=== PATIENT | female | born 1980 | race Caucasian/White ===

== ENCOUNTER 2016-10-29 20:48 | Inpatient (IN) | payer MEDICAID, OTHER ==
[~2016-10-29] VITALS: Ht 162.6 cm; Wt 91.0 kg
[~2016-10-29 20:48] MED LIST: ADDE20TA OR; LABETALOL 200 MG PO; METHY10 PO; OXYC-360 PO; PRENTAB62 PO; XYRE500S PO
[2016-10-29 20:49] VITALS: BP 160/88; PULSE 126; RESP 18; TEMP 97.6; O2SAT 100
--- NOTE | 2016-10-29 20:58 | PD ---
Physical Exam Date Seen by Provider: October 29, 2016 Time Seen by Provider: 20:56 Narrative 36 yo female that presents to the ED for evaluation of abnormal labs and here to get blood transfusion. She was seen at [facility] and left AMA for "various reasons". States she has chest pain and leg swelling. Called her doctor who told her to come here for the abnormal blood work. Vitals sign stable. Patient awaiting bed placement. Data Data Last Documented VS Vital Signs Date Time Temp Pulse Resp B/P Pulse Ox O2 Delivery O2 Flow Rate FiO2 10/29/16 20:49 97.6 126 18 160/88 100 Room Air [facility] Medical Record Reviewed: Yes Supervised Visit with PABLO: No Andre Buck October 29, 2016 20:58
[2016-10-29 22:44] LABS: MEAN CORPUSCULAR HGB CONC 27.2 % (32.0-36.0)
--- NOTE | 2016-10-29 22:47 | PD ---
Physical Exam Date Seen by Provider: October 29, 2016 Time Seen by Provider: 22:43 Narrative 36-year-old female with history of narcolepsy, recurrent microcytic anemia status post gastric bypass, presents the emergency department at the request of her primary care physician. Patient states she was at [facility] 3 days ago, and was going to be admitted for anemia, and transfusion, but the patient left AMA. Patient called her primary care physician today who reviewed her labs and stated she needed to come and be seen for possible renal failure and anemia. Patient has a history of anemia and renal failure in the past. Patient is complaining of some left flank pain, but denies fever, nausea, vomiting, or diarrhea. She is allergic to adhesive tape. Data Data Last Documented VS Vital Signs Date Time Temp Pulse Resp B/P Pulse Ox O2 Delivery O2 Flow Rate FiO2 10/29/16 20:59 16 10/29/16 20:49 97.6 126 160/88 100 Room Air Orders Complete Blood Count With Diff (10/29/16 22:40) Comprehensive Metabolic Panel (10/29/16 22:40) Lipase (10/29/16 22:40) Prothrombin Time / Inr (Pt) (10/29/16 22:40) Act Partial Throm Time (Ptt) (10/29/16 22:40) Urinalysis - C+S If Indicated (10/29/16 22:40) Iv Access Insert/Monitor (10/29/16 22:40) Ecg Monitoring (10/29/16 22:40) Oximetry (10/29/16 22:40) Type And Screen (10/29/16 22:40) [facility] Medical Record Reviewed: Yes Supervised Visit with PABLO: Yes Narrative Course Patient will be seen by Dr. Jo who will do the full exam and disposition. Condition: Stable Carter Macias October 29, 2016 22:47
[2016-10-29 23:14] LABS: AUTOMATED NEUTROPHIL # 6.4 TH/MM3 (1.8-7.7); BASOPHIL # 0.2 TH/MM3 (0-0.2); BASOPHIL % 1.4 % (0.0-2.0); EOSINOPHIL # 0.3 TH/MM3 (0-0.4); EOSINOPHIL % 2.6 % (0.0-4.0); HEMATOCRIT 25.9 % (35.0-46.0); HEMO FLAGS DIFF FINAL; LYMPHOCYTE # 3.1 TH/MM3 (1.0-4.8); MEAN CELL VOLUME 63.1 FL (80.0-100.0); MEAN CORPUSCULAR HEMOGLOBIN 17.2 PG (27.0-34.0); MONO % 6.8 % (0.0-8.0); NEUT % 60.2 % (16.0-70.0); PLATELET COUNT 269 TH/MM3 (150-450); RED BLOOD COUNT 4.11 MIL/MM3 (4.00-5.30); RED CELL DISTRIBUTION WIDTH 19.9 % (11.6-17.2); WHITE BLOOD COUNT 10.6 TH/MM3 (4.0-11.0)
[2016-10-29 23:19] VITALS: RESP 16
[2016-10-29] MEDS ORDERED: METHY10 PO (23:28)
[2016-10-29] MEDS ORDERED: ADDE20 PO (23:28)
[2016-10-29 23:33] LABS: ANION GAP 7 MEQ/L (5-15); AST (GOT) 10 U/L (15-37); BICARBONATE 25.3 MEQ/L (21.0-32.0); BLOOD UREA NITROGEN 8 MG/DL (7-18); CHLORIDE 105 MEQ/L (98-107); GLOMERULAR FILTRATION RATE 172 ML/MIN (>89); POTASSIUM 3.8 MEQ/L (3.5-5.1); SODIUM (NA) 137 MEQ/L (136-145)
[2016-10-29 23:34] LABS: ALT (GPT) 17 U/L (10-53)
[2016-10-29 23:36] LABS: ALKALINE PHOSPHATASE 95 U/L (45-117); APTT (PATIENT) 26.6 SEC (24.3-30.1); INTERNATIONAL NORMALIZED RATIO 0.9 RATIO; PROTHROMBIN TIME - PATIENT 10.3 SEC (9.8-11.6); TOTAL BILIRUBIN ADULT 0.2 MG/DL (0.2-1.0)
--- NOTE | 2016-10-29 23:38 | PD ---
HPI Chief Complaint: Abdominal Pain Time Seen by Provider: 23:25 Travel History International Travel<30 days: No Contact w/Intl Traveler<30days: No Traveled to known affect area: No History of Present Illness HPI The patient is a 36-year-old female who presents emergency department for multiple complaints. The patient states she was evaluated in the emergency department [facility] last week. The patient was diagnosed with anemia and apparently had acute renal failure, however, she left the emergency department against medical review coordinator. The patient received a phone call from her tremor physician, Dr. Edwards, earlier today and was told to come to the emergency department for abnormal labs. The patient does have a history of gastric bypass with [id number], has a history of anemia which she thinks is worse over the last several weeks. The patient does complain of dyspnea upon exertion and fatigue. She also complains of edema to lower extremities bilateral, is unsure if this is secondary to her renal failure. The patient also notes a history of HPV with abnormal Pap smears, states her labs Pap smear was 4 years ago, is unsure if she is having any symptoms related to her vaginal discharge which she describes as brown, liquid, with pelvic pain. The patient denies any fever, chills, or sweats. The patient denies any current rectal bleeding or dark colored stools. PFSH Past Medical History Autoimmune Disease: No Anxiety: No Depression: No Cancer: No Cardiovascular Problems: Yes Diabetes: No (GEST DIAB) Diminished Hearing: No Genitourinary: No Hypertension: Yes Musculoskeletal: No Neurologic: No Reproductive: No Respiratory: Yes (NARCOLEPSY) Tetanus Vaccination: Never Vaccinated Influenza Vaccination: No ?: Not LMP: 10/19/16 : 4 Para: 2 Miscarriage: 0 : 1 Past Surgical History Surgical History: No Previous Surgery Pacemaker: No Social History Alcohol Use: No Tobacco Use: Yes Substance Use: No Allergies-Medications (Allergen,Severity, Reaction): Uncoded Allergies: ADHESIVE TAPE (Allergy, Mild, ITCHING/RASH, 12/10/12) CLEAR TAPE Reported Meds & Prescriptions Reported Meds & Active Scripts Active Reported Ritalin IR (Methylphenidate HCl) 10 Mg Tab 10 Mg PO TIDAC Adderall (Amphetamine-Dextroamphetamine) 20 Mg Tab 20 Mg PO BID Avoid late evening doses. Space doses at least 4 to 6 hours if more than once/day dosing. Review of Systems Except as stated in HPI: all other systems reviewed are Neg General / Constitutional: No: Fever HENT: No: Lightheadedness Cardiovascular: Positive: Dyspnea on exertion, No: Chest Pain or Discomfort Respiratory: No: Shortness of Breath Gastrointestinal: No: Nausea, Vomiting Genitourinary: Positive: Pelvic Pain, Discharge Musculoskeletal: Positive: Weakness, Edema Neurologic: Positive: Weakness Physical Exam Narrative GENERAL: Awake, alert, 36-year-old female who appears her stated age is in no acute respiratory distress. SKIN: Focused skin assessment warm/dry. HEAD: Atraumatic. Normocephalic. EYES: Pupils equal and round. Mild pallor noted. ENT: No nasal bleeding or discharge. Mucous membranes pink and moist. NECK: Trachea midline. No JVD. CARDIOVASCULAR: Regular, tachycardic with a heart rate in the 120s. RESPIRATORY: No accessory muscle use. Clear to auscultation. Breath sounds equal bilaterally. GASTROINTESTINAL: Abdomen soft, obese, no rebound tenderness. Pelvic: The exam was performed in the presence of a female nurse. External examination is unremarkable. Speculum examination reveals scant white discharge in vaginal vault. No obvious abnormalities of the cervix on visual inspection. MUSCULOSKELETAL: No obvious deformities. No clubbing. No cyanosis. Bilateral lower extremity pitting edema of the feet. NEUROLOGICAL: Awake and alert. No obvious cranial nerve deficits. Motor grossly within normal limits. Normal speech. PSYCHIATRIC: Appropriate mood and affect; insight and judgment normal. Data Data Last Documented VS Vital Signs Date Time Temp Pulse Resp B/P Pulse Ox O2 Delivery O2 Flow Rate FiO2 10/29/16 23:19 16 10/29/16 20:49 97.6 126 160/88 100 Room Air Orders Complete Blood Count With Diff (10/29/16 22:40) Comprehensive Metabolic Panel (10/29/16 22:40) Lipase (10/29/16 22:40) Prothrombin Time / Inr (Pt) (10/29/16 22:40) Act Partial Throm Time (Ptt) (10/29/16 22:40) Urinalysis - C+S If Indicated (10/29/16 22:40) Iv Access Insert/Monitor (10/29/16 22:40) Ecg Monitoring (10/29/16 22:40) Oximetry (10/29/16 22:40) Type And Screen (10/29/16 22:40) Gc And Chlamydia Pcr (10/29/16 23:29) Wet Prep Profile (10/29/16 23:29) Ed Urine Pregnancytest Poc (10/29/16 23:29) Blood Product Administration .UPON TRANSFUSION (10/29/16 23:31) Sodium Chlor 0.9% 250 Ml Inj (Ns 250 Ml (10/29/16 23:45) Iron/Tibc Profile (10/29/16 23:32) Red Blood Cells (Rbc) (10/29/16 23:07) Urine Culture (10/29/16 23:20) Admit Order (Ed Use Only) (10/30/16 00:26) Labs Laboratory Tests Test 10/29/16 10/29/16 10/29/16 23:03 23:07 23:20 White Blood Count 10.6 TH/MM3 Red Blood Count 4.11 MIL/MM3 Hemoglobin 7.0 GM/DL Hematocrit 25.9 % Mean Corpuscular Volume 63.1 FL Mean Corpuscular Hemoglobin 17.2 PG Mean Corpuscular Hemoglobin 27.2 % Concent Red Cell Distribution Width 19.9 % Platelet Count 269 TH/MM3 Mean Platelet Volume 8.3 FL Neutrophils (%) (Auto) 60.2 % Lymphocytes (%) (Auto) 29.0 % Monocytes (%) (Auto) 6.8 % Eosinophils (%) (Auto) 2.6 % Basophils (%) (Auto) 1.4 % Neutrophils # (Auto) 6.4 TH/MM3 Lymphocytes # (Auto) 3.1 TH/MM3 Monocytes # (Auto) 0.7 TH/MM3 Eosinophils # (Auto) 0.3 TH/MM3 Basophils # (Auto) 0.2 TH/MM3 CBC Comment DIFF FINAL Differential Comment Prothrombin Time 10.3 SEC Prothromb Time International 0.9 RATIO Ratio Activated Partial 26.6 SEC Thromboplast Time Sodium Level 137 MEQ/L Potassium Level 3.8 MEQ/L Chloride Level 105 MEQ/L Carbon Dioxide Level 25.3 MEQ/L Anion Gap 7 MEQ/L Blood Urea Nitrogen 8 MG/DL Creatinine 0.42 MG/DL Estimat Glomerular Filtration 172 ML/MIN Rate Random Glucose 103 MG/DL Calcium Level 8.5 MG/DL Total Bilirubin 0.2 MG/DL Aspartate Amino Transf 10 U/L (AST/SGOT) Alanine Aminotransferase 17 U/L (ALT/SGPT) Alkaline Phosphatase 95 U/L Total Protein 7.5 GM/DL Albumin 3.5 GM/DL Lipase 95 U/L Iron Level 17 MCG/DL Total Iron Binding Capacity 487 MCG/DL Percent Iron Saturation 3.5 % Blood Type O NEGATIVE Antibody Screen NEGATIVE Crossmatch Leukocyte-Reduced Red Blood Cells Blood Bank Comment Urine Color YELLOW Urine Turbidity HAZY Urine pH 6.0 Urine Specific Martin 1.024 Urine Protein TRACE mg/dL Urine Glucose (UA) NEG mg/dL Urine Ketones NEG mg/dL Urine Occult Blood NEG Urine Nitrite POS Urine Bilirubin NEG Urine Urobilinogen LESS THAN 2.0 MG/DL Urine Leukocyte Esterase SMALL Urine RBC 2 /hpf Urine WBC 9 /hpf Urine Squamous Epithelial 4 /hpf Cells Urine Renal Epithelial Cells <1 /hpf Urine Bacteria RARE /hpf Urine Mucus FEW /lpf Microscopic Urinalysis Comment CULTURE INDICATED MDM Medical Decision Making Medical Screen Exam Complete: Yes Emergency Medical Condition: Yes Medical Record Reviewed: Yes Interpretation(s) Laboratory Tests Test 10/29/16 10/29/16 10/29/16 23:03 23:07 23:20 White Blood Count 10.6 TH/MM3 Red Blood Count 4.11 MIL/MM3 Hemoglobin 7.0 GM/DL Hematocrit 25.9 % Mean Corpuscular Volume 63.1 FL Mean Corpuscular Hemoglobin 17.2 PG Mean Corpuscular Hemoglobin 27.2 % Concent Red Cell Distribution Width 19.9 % Platelet Count 269 TH/MM3 Mean Platelet Volume 8.3 FL Neutrophils (%) (Auto) 60.2 % Lymphocytes (%) (Auto) 29.0 % Monocytes (%) (Auto) 6.8 % Eosinophils (%) (Auto) 2.6 % Basophils (%) (Auto) 1.4 % Neutrophils # (Auto) 6.4 TH/MM3 Lymphocytes # (Auto) 3.1 TH/MM3 Monocytes # (Auto) 0.7 TH/MM3 Eosinophils # (Auto) 0.3 TH/MM3 Basophils # (Auto) 0.2 TH/MM3 CBC Comment DIFF FINAL Differential Comment Prothrombin Time 10.3 SEC Prothromb Time International 0.9 RATIO Ratio Activated Partial 26.6 SEC Thromboplast Time Sodium Level 137 MEQ/L Potassium Level 3.8 MEQ/L Chloride Level 105 MEQ/L Carbon Dioxide Level 25.3 MEQ/L Anion Gap 7 MEQ/L Blood Urea Nitrogen 8 MG/DL Creatinine 0.42 MG/DL Estimat Glomerular Filtration 172 ML/MIN Rate Random Glucose 103 MG/DL Calcium Level 8.5 MG/DL Total Bilirubin 0.2 MG/DL Aspartate Amino Transf 10 U/L (AST/SGOT) Alanine Aminotransferase 17 U/L (ALT/SGPT) Alkaline Phosphatase 95 U/L Total Protein 7.5 GM/DL Albumin 3.5 GM/DL Lipase 95 U/L Blood Type O NEGATIVE Antibody Screen NEGATIVE Crossmatch Leukocyte-Reduced Red Blood Cells Blood Bank Comment Urine Color YELLOW Urine Turbidity HAZY Urine pH 6.0 Urine Specific Martin 1.024 Urine Protein TRACE mg/dL Urine Glucose (UA) NEG mg/dL Urine Ketones NEG mg/dL Urine Occult Blood NEG Urine Nitrite POS Urine Bilirubin NEG Urine Urobilinogen LESS THAN 2.0 MG/DL Urine Leukocyte Esterase SMALL Urine RBC 2 /hpf Urine WBC 9 /hpf Urine Squamous Epithelial 4 /hpf Cells Urine Renal Epithelial Cells <1 /hpf Urine Bacteria RARE /hpf Urine Mucus FEW /lpf Microscopic Urinalysis Comment CULTURE INDICATED Differential Diagnosis Differential diagnosis includes symptomatic anemia, GI bleed, iron deficiency anemia, hypoalbuminemia, acute renal failure, cervicitis, PID, vaginitis, UTI. Narrative Course IV was established, labs are drawn and sent, and the patient was placed on cardiac telemetry monitoring and continuous pulse oximetry monitoring. The patient's hemoglobin was noted to be 7.0, therefore, type and screen was sent to lab and the patient was ordered 2 units of PRBCs secondary to symptomatic anemia with her dyspnea upon exertion and tachycardia. A pelvic exam was performed in the presence of a female nurse. The patient's hemoglobin was 7.0, the patient is symptomatic, therefore, the patient will be transfused 2 units of PRBCs. I am profile was sent to lab. UA reveals 9 WBCs and nitrites, therefore, patient was administered Rocephin 1 g intravenously. The patient's primary physician is Dr. Edwards, [facility] Physician Communication Physician Communication The patient's primary physician is Dr. Edwards, [facility] I discussed the patient with Codey Mclean PA-C, who agrees with admission to Dr. Cruz. Diagnosis Primary Impression: Symptomatic anemia Additional Impression: UTI (urinary tract infection) Qualified Code: N30.00 - Acute cystitis without hematuria Admitting Information Admitting Physician Requests: Admit Condition: Stable Nico Jo MD October 29, 2016 23:38
[2016-10-29] MEDS ORDERED: SODIUM CHLOR 0.9% 250 ML INJ 250 ML IV ONE (23:45)
[2016-10-29 23:56] LABS: BACTERIA, URINE RARE /hpf; BLOOD, URINE NEG (NEG); GLUCOSE,URINE NEG (NEG); KETONE, URINE NEG (NEG); MUCUS URINE FEW /lpf (OCC); RENAL EPITHELIAL CELLS <1 /hpf; SQUAMOUS EPITHELIAL CELL URINE 4 /hpf (0-5); URINE COLOR YELLOW (YELLW/STRAW)
[2016-10-29 23:57] LABS: COMMENT (UR) CULTURE INDICATED; CULTURE IF INDICATED CULTURE INDICATED; NITRITE,URINE POS (NEG)
[2016-10-30 00:24] LABS: TRANSFERRIN IRON PROFILE 348 MG/DL (200-360)
[2016-10-30 00:30] VITALS: BP 122/73; PULSE 90; RESP 16; TEMP 98.5; O2SAT 99
[2016-10-30] MEDS ORDERED: NALOXONE HCL 0.4 MG/ML AMP IV PRN (00:30)
[2016-10-30] MEDS ORDERED: BISACODYL 10 MG SUPP RECTAL PRN (00:30)
[2016-10-30] MEDS ORDERED: LACTULOSE SYRUP 20 GM/30 ML CUP PO PRN (00:30)
[2016-10-30] MEDS ORDERED: SODIUM CHLORIDE 0.9% FLUSH 10 ML FLUSH IV FLUSH PRN (00:30)
[2016-10-30] MEDS ORDERED: SENNOSIDES 8.6 MG TAB PO PRN (00:30)
[2016-10-30] MEDS ORDERED: MAGNESIUM HYDROXIDE SUSP 30 ML CUP PO PRN (00:30)
[2016-10-30] MEDS ORDERED: ONDANSETRON HCL 4 MG/2 ML VIAL IVP PRN (00:30)
[2016-10-30] MEDS ORDERED: ACETAMINOPHEN 325 MG TAB PO PRN (00:30)
[2016-10-30 00:35] VITALS: BP 126/65; PULSE 91; RESP 16; O2SAT 99
[2016-10-30 00:50] VITALS: BP 124/67; PULSE 91; RESP 16; O2SAT 98
[2016-10-30 01:05] VITALS: BP 101/55; PULSE 88; RESP 16; O2SAT 99
[2016-10-30 02:06] LABS: CHLAMYDIA PCR NOT DETECTED (NOT DETECT); NEISSERIA PCR NOT DETECTED (NOT DETECT)
[2016-10-30 03:30] VITALS: BP 117/72; PULSE 82; RESP 20; TEMP 97; O2SAT 95
[2016-10-30] MEDS ORDERED: TEMAZEPAM 15 MG CAP PO SCH (03:30)
[2016-10-30] MEDS ORDERED: IBUPROFEN 800 MG TAB PO SCH (03:30)
[2016-10-30] MEDS ORDERED: cefTRIAXone 1,000 MG/NS 100 ML IV SCH ×2 (04:00)
[2016-10-30 04:40] LABS: BETA HCG QUANT LESS THAN 1 MIU/ML (0-5)
[2016-10-30] MEDS ORDERED: HEPARIN SODIUM - SQ 10,000 UNITS/ML VIAL SQ SCH (06:00)
[2016-10-30] MEDS ORDERED: FERROUS SULFATE 325 MG (65 MG ELEMENTAL IRON) TAB PO SCH (09:00)
[2016-10-30] MEDS ORDERED: SODIUM CHLORIDE 0.9% FLUSH 10 ML FLUSH IV FLUSH SCH (09:00)
[2016-10-30] MEDS ORDERED: FAMOTIDINE 20 MG TAB PO SCH (09:00)
== END 2016-10-30 06:46 | disposition left against medical advice (07) | DRG 812 ==
LOC: NEPC 20:48 → NEDA 10-30 00:27 → HOCA 10-30 02:36
PROVIDERS: ADMIT Internal Medicine; ATTEND Internal Medicine
PROC: 30233N1 Transfusion of Nonautologous Red Blood Cells into Peripheral Vein, Percutaneous Approach (ICD-10-PCS; principal; 2016-10-30)
DX: D50.9 Iron deficiency anemia, unspecified (principal); I10 Essential (primary) hypertension; G47.419 Narcolepsy without cataplexy; F17.210 Nicotine dependence, cigarettes, uncomplicated; Z98.84 Bariatric surgery status
CPT/HCPCS: 36430; 80053; 81001; 83540; 83550; 83690; 84702; 84703; 85025; 85610; 85730; 86850; 86900; 86901; 86920; 87077; 87086; 87186; 87210; 87491; 87591; 99285; J0696; J7050; P9016